=== PATIENT | male | born 1955 | race Caucasian/White ===

== ENCOUNTER → 2017-11-09 | Outpatient (CLI) | payer BC | END | disposition home or self-care (01) | LOC: ORTHO 00:39 | DX: M17.11 Unilateral primary osteoarthritis, right knee (principal) ==

== ENCOUNTER → 2018-10-23 | Outpatient (CLI) | payer BC ==
[~2018-10-23] MED LIST: ALLOPURINOL300 MG PO; AMLODIPINE BESYL5 MG PO; ASPIRIN CHEWABL81 MG PO; ECOTRIN325 M1 PO; ENOXAPARIN40 MG/0.2 SC; FLOMAX0.4 MG PO; GLUCOPHAGE1000 MG PO; HYDROCODONE-AC1 EAC1 PO; Humalog SQ; LANTUS SOL100 UNIT/1 SQ; NEXIUM40 M1 PO; PIOGLITAZONE HC45 MG PO; TOPROL XL25 MG PO; TYLENOL325 M2 PO; VICTOZA 2-0.6 MG/0.1 SQ; ZESTRIL20 MG PO
--- NOTE | ~2018-10-23 | EKG ---
[place], [place] ELECTROCARDIOGRAM REPORT NAME: MATEO CHAVEZ JR UNIT #: [id number] ROOM: DOCTOR: BRADLEY DRAFT REPORT BIRTHDATE: [birth year] [facility] Test Date: 2018-10-23 Test Time: 13:41:36 Pat Name: MATEO CHAVEZ Department: Room: Gender: [place] Encaser: Melody Lou : 1955 Requested By: NIRAV ALBRECHT Order Number: [id number] Reading MD: Reyes Olguin Measurements Intervals [place] Rate: 77 P: 22 WA: 184 QRS: 9 QRSD: 88 T: 38 QT: 368 QTc: 417 Interpretive Statements Sinus rhythm Low voltage, precordial leads Electronically Signed On 10-23-2018 12:03:17 PDT by Reyes Olguin CM:EKGRPT:ELECTROCARDIOGRAM REPORT [id number] NIRAV HUERTA DRAFT REPORT NIRAV ALBRECHT
[2018-10-23 13:36] LABS: BASO # 0.1 10*3/uL (0.0-0.1); BASO % 0.8 % (0.0-1.0); BILIRUBIN NEGATIVE (NEGATIVE); BLOOD NEGATIVE (NEGATIVE); CLARITY CLEAR (CLEAR); COLOR YELLOW (YELLOW); EOS # 0.2 10*3/uL (0.0-0.4); EOS % 3.2 % (1.0-4.0); GLUCOSE 3+ (NEGATIVE); HEMATOCRIT 42.6 % (42.0-52.0); HEMOGLOBIN 13.1 g/dl (14.0-18.0); KETONE NEGATIVE (NEGATIVE); LEUKO ESTERASE NEGATIVE (NEGATIVE); LYMPH # 1.7 10*3/uL (1.3-4.4); LYMPH % 23.7 % (27.0-41.0); MEAN CORPUSCULAR HGB 28.3 pg (27.0-31.0); MEAN CORPUSCULAR HGB CONC 30.8 g/dl (33.0-37.0); MEAN PLATELET VOLUME 9.3 fl (9.6-12.3); MONO # 0.5 10*3/uL (0.1-1.0); MONO % 7.4 % (3.0-9.0); NEUT # 4.6 10*3/uL (2.3-7.9); NEUT % 64.3 % (47.0-73.0); NITRITE NEGATIVE (NEGATIVE); PH 5.5 (5.0-9.0); PLATELET COUNT AUTOMATED 375 10*3/uL (130-400); RED BLOOD COUNT 4.63 10*6/uL (4.50-5.90); RED CELL DISTRI WIDTH 13.8 % (0-14.5); SPECIFIC GRAVITY 1.025 (1.005-1.030); UROBILINOGEN 0.2 E.U./dl (0.2-1.0); WHITE BLOOD COUNT 7.2 10*3/uL (4.8-10.8)
[2018-10-23 13:54] LABS: ALBUMIN 3.3 gm/dl (3.1-4.5); ALKALINE PHOSPHATASE 95 U/L (45-117); BUN 18 mg/dl (7-24); CHLORIDE 104 mmol/L (98-107); CHOLESTEROL 190 mg/dL (<200); CREATININE 1.37 mg/dL (0.70-1.30); HDL CHOLESTEROL 42 mg/dl (40-60); LDL CHOLESTEROL 89 mg/dL (9-159); PHOSPHOROUS 3.1 mg/dL (2.5-4.9); POTASSIUM 4.2 mmol/L (3.5-5.1); SGOT/AST 9 IU/L (3-35); SGPT/ALT 21 U/L (12-78); SODIUM 138 mmol/L (136-145); TOTAL PROTEIN 7.3 gm/dL (6.4-8.2); TRIGLYCERIDES 293 mg/dl (<150); VLDL CHOLESTEROL 59 mg/dL (6-40)
[2018-10-23 13:55] LABS: BILIRUBIN, DIRECT 0.1 mg/dL (0.0-0.2)
== END | disposition home or self-care (01) ==
LOC: LAB 13:12
PROVIDERS: Internal Medicine
DX: I25.10 Atherosclerotic heart disease of native coronary artery without angina pectoris (principal); I10 Essential (primary) hypertension; E11.9 Type 2 diabetes mellitus without complications; Z79.4 Long term (current) use of insulin

== ENCOUNTER → 2018-10-31 | Outpatient (CLI) | payer BC ==
[2018-10-31 15:07] LABS: BILIRUBIN NEGATIVE (NEGATIVE); BLOOD TRACE-INTACT (NEGATIVE); CLARITY CLEAR (CLEAR); COLOR YELLOW (YELLOW); GLUCOSE NEGATIVE (NEGATIVE); KETONE NEGATIVE (NEGATIVE); LEUKO ESTERASE NEGATIVE (NEGATIVE); NITRITE NEGATIVE (NEGATIVE); PH 5.5 (5.0-9.0); SPECIFIC GRAVITY 1.025 (1.005-1.030); UROBILINOGEN 0.2 E.U./dl (0.2-1.0)
[2018-10-31 15:25] LABS: EPITHELIAL CELLS 0-2
[2018-10-31 15:26] LABS: HYALINE CAST 0-2
== END | disposition home or self-care (01) ==
LOC: LAB 13:01
PROVIDERS: Orthopaedic Surgery
DX: Z01.811 Encounter for preprocedural respiratory examination (principal); M17.11 Unilateral primary osteoarthritis, right knee

== ENCOUNTER 2018-11-14 00:37 | Inpatient (IN) | payer BC ==
[~2018-11-14] VITALS: Ht 182.8 cm; Wt 129.3 kg
[2018-11-14] VITALS (11 sets, daily range): BP systolic 143–194; BP diastolic 67–95
[~2018-11-14 00:37] MED LIST changes: -ECOTRIN325 M1 PO; -ENOXAPARIN40 MG/0.2 SC; -HYDROCODONE-AC1 EAC1 PO; -Humalog SQ; -TYLENOL325 M2 PO
--- NOTE | 2018-11-14 13:48 | NUR ---
[facility] 63, admitted to , under the services of BRITNEY Moore DO with a diagnosis of RT KNEE REPLACEMENT. Chief complaint is PAIN. Patient arrived via bed from [place]. Monitor applied. Initial assessment completed. Vital signs taken and recorded. BRITNEY MOORE DO notified of admission to the unit. Orders received. See assessment for past medical history, medications and allergies. Patient and/or family oriented to unit. [facility]. Clothing/patient valuable form completed. FERMIN PEREZ
--- NOTE | 2018-11-14 13:50 | NUR ---
MORPHINE GIVEN FOR C/O RT KNEE PAIN. RATES 8/10 ON PAIN SCALE. WILL MONITOR.
--- NOTE | 2018-11-14 14:50 | NUR ---
MORPHINE NOT FULLY EFFECTIVE PER PT. WILL MONITOR.
--- NOTE | 2018-11-14 15:29 | NUR ---
NORCO GIVEN FOR C/O RT KNEE PAIN. RATES 8/10 ON PAON SCALE. WILL MONITOR.
--- NOTE | 2018-11-14 16:22 | NUR ---
Occupational Therapy evaluation completed on 4 with full eval to follow. Precautions include RLE WBAT s/p R TKA 11/14/[address] Matthews, fall risk,new ww use, CPM use, O2 use, IV UE, moderate complexity 55092 via chart review, testing, and evaluation. Recommend OT per pOC and SNF to enable safe return home. Patient educated on R TKA precautions, safety with wh walker and transfers to bed. Thank you. Nancy Kidd OTr/L
--- NOTE | 2018-11-14 17:02 | NUR ---
PHYSICAL THERAPY Nursing screen received and chart reviewed. Physical therapy evaluation complete, 4E. Full evaluation/details to follow. Moderate complexity evaluation per chart review and evaluation. PT to progress as tolerable with gait, transfers, balance, LE strengthening. Patient is WBAT on Right LE following Right TKA. Recommend SNF at discharge. Thank you. Lizzy Arriaga,PT,DPT.
--- NOTE | 2018-11-14 18:01 | NUR ---
MORPHINE GIVEN FOR C/O RT KNEE PAIN. RATES 8/10 ON PAIN SCALE. WILL MONITOR.
--- NOTE | 2018-11-14 19:29 | NUR ---
PRN ORDER FOR MYNOR RECIEVED FOR COMPLAINTS OF 10/10 PAIN TO RT LEG. WILL MONITOR FOR EFFECTIVENESS
--- NOTE | 2018-11-14 19:50 | NUR ---
DR. CANTRELL NOTIFIED OF PT'S COMPLAINTS OF DISTRESSING PAIN DESPITE BEING GIVEN MORPHINE AT 1800 AT [place] AT 1929. PT STATES THE MORPHINE ONLY TAKES HIS PAIN AWAY FOR A VERY BREIF AMOUNT OF TIME THEN THE PAIN COMES BACK. HE RATES HIS PAIN 10/10 AT THIS TIME. ORDERS TO INCREASE MORPHINE FROM 2MG TO 3MG Q4H PRN.
--- NOTE | 2018-11-14 21:00 | NUR ---
SURESHCO MINIMALLY EFFECTIVE PER PT.
--- NOTE | 2018-11-14 21:06 | NUR ---
3MG MORPHINE REQUESTED AND RECIEVED FOR COMPLAINTS OF 10/10 PAIN TO RT LEG. WILL MONITOR FOR EFFECTIVENESS.
--- NOTE | 2018-11-14 22:06 | NUR ---
MORPHINE MINIMALLY EFFECTIVE PER PT
--- NOTE | 2018-11-14 23:00 | NUR ---
PT REFUSING CPM MACHINE. HE STATES IT MAKES THE PAIN MUCH WORSE THAN IT ALREADY IS.
[2018-11-15] VITALS: BP 178/90
--- NOTE | 2018-11-15 00:16 | NUR ---
DR. CANTRELL NOTIFIED OF PT'S BP 178/90 MANUALLY. PT IS ASYMPTOMATIC. STATES HE IS IN PAIN. DR. CANTRELL STATES TO MONITOR THE BP, IT IS PROBABLY DUE TO THE PAIN. WILL CONTINUE TO MONITOR.
--- NOTE | 2018-11-15 00:27 | NUR ---
NORCO ADMINISTERED ORDERED FOR C/O 10 PAIN TO RT LEG. WILL MONITOR FOR EFFECTIVENESS.
--- NOTE | 2018-11-15 02:00 | NUR ---
NORCO NOT EFFECTIVE PER PT
--- NOTE | 2018-11-15 02:57 | NUR ---
PT REQUESTED AND RECIEVED MORPHINE FOR COMPLAINTS OF RT LEG PAIN HE RATES 10/10. WILL MONITOR FOR EFFECTIVENESS OF MEDICATION.
--- NOTE | 2018-11-15 04:30 | NUR ---
MORPHINE NOT EFFECTIVE PER PTY
--- NOTE | 2018-11-15 05:20 | NUR ---
DR. CANTRELL NOTIFIED THAT MORPHINE AND NORCO ARE NOT HELPING PT'S PAIN. HE STILL RATES HIS PAIN IS STILL 10/10. SHE STATES SHE WILL PUT IN ORDERS FOR DILAUDID 1MG Q4H
--- NOTE | 2018-11-15 05:28 | NUR ---
1MG IV DILAUDID GIVEN FOR C/O 10/10 PAIN TO RT LEG. WILL MONITOR FOR EFFECTIVENESS
[2018-11-15 06:37] LABS: BASO % 0.3 % (0.0-1.0); EOS % 0.2 % (1.0-4.0); HEMATOCRIT 38.4 % (42.0-52.0); HEMOGLOBIN 12.5 g/dl (14.0-18.0); LYMPH # 0.8 10*3/uL (1.3-4.4); LYMPH % 6.4 % (27.0-41.0); MEAN CELL VOLUME 88.5 fl (80.0-94.0); MEAN CORPUSCULAR HGB 28.8 pg (27.0-31.0); MEAN CORPUSCULAR HGB CONC 32.6 g/dl (33.0-37.0); MEAN PLATELET VOLUME 9.1 fl (9.6-12.3); MONO # 1.2 10*3/uL (0.1-1.0); MONO % 9.9 % (3.0-9.0); NEUT # 9.7 10*3/uL (2.3-7.9); NEUT % 82.6 % (47.0-73.0); PLATELET COUNT AUTOMATED 291 10*3/uL (130-400); RED BLOOD COUNT 4.34 10*6/uL (4.50-5.90); RED CELL DISTRI WIDTH 13.5 % (0-14.5); WHITE BLOOD COUNT 11.8 10*3/uL (4.8-10.8)
[2018-11-15 07:09] LABS: CHLORIDE 96 mmol/L (98-107); POTASSIUM 3.9 mmol/L (3.5-5.1); SODIUM 129 mmol/L (136-145)
[2018-11-15 07:26] LABS: ALBUMIN 3.2 gm/dl (3.1-4.5); ALKALINE PHOSPHATASE 77 U/L (45-117); BUN 8 mg/dl (7-24); CHOLESTEROL 161 mg/dL (<200); CREATININE 1.08 mg/dL (0.70-1.30); FREE T4 1.24 ng/dl (0.76-1.46); HDL CHOLESTEROL 56 mg/dl (40-60); LDL CHOLESTEROL 91 mg/dL (9-159); PHOSPHOROUS 3.1 mg/dL (2.5-4.9); SGOT/AST 9 IU/L (3-35); SGPT/ALT 14 U/L (12-78); TOTAL PROTEIN 7.1 gm/dL (6.4-8.2); TRIGLYCERIDES 69 mg/dl (<150); VLDL CHOLESTEROL 14 mg/dL (6-40)
--- NOTE | 2018-11-15 07:32 | NUR ---
DILAUDID SEEMS TO BE MORE EFFECTIVE THAN MORPHINE. PT RESTING IN BED AT THIS TIME. RESPIRATIONS EASY AND NONLABORED. CALL LIGHT WITHIN REACH. WILL CONTINUE TO MONITOR.
[2018-11-15 08:00] VITALS: BP 162/80
--- NOTE | 2018-11-15 08:15 | NUR ---
PT MEDICATED WITH PRN NORCO FOR C/O RIGHT KNEE PAIN. PT RATES PAIN 9/10 AFTER THE DILAUDID WORE OFF. WILL MONITOR.
--- NOTE | 2018-11-15 08:44 | NUR ---
In to see patient, at bedside. Discussed discharge planning. Patient agreeable to short term rehab. [facility]. Will contact facilities and fax referral.
[2018-11-15 08:48] LABS: VITAMIN D, 25-HYDROXY 38.2 ng/mL (30-100)
--- NOTE | 2018-11-15 08:52 | NUR ---
[facility] full and does not have any anticipated discharges until after the 21 of november. Faxed referral to [facility], requested private room on rehab wing. Waiting for review/acceptance. will require precert.
--- NOTE | 2018-11-15 09:00 | NUR ---
Instructor Industrial Design in to talk to patient. Patient states lives at home with . There are few steps in the home. Physician: michelle Pharmacy: Home health services: none Patient's level of ADLs: INDEPENDENT Patient has working utilities: all working DME: none Follow-up physician's appointment after d/c: will be made by hospitalist nurse director upon discharge Does patient want to access PORTAL?: no Discharge plan discussed with patient, present, patient and have discussed discharge plans with life care planner and have decided to go to [facility] for short term alf, case management will follow. JORGE MCCARTHY
--- NOTE | 2018-11-15 09:12 | NUR ---
PRN NORCO SOMEWHAT EFFECTIVE PER PT BUT REQUESTS PRN DILAUDID. PT RATES PAIN 11/11. PRN DIDLAUDID GIVEN.
--- NOTE | 2018-11-15 10:05 | NUR ---
PHYSICAL THERAPY Patient seen this am 1;1 for therapy visit and was supine in bed with his and family friend present upon therapist arrival. Patient voices 5/10 R knee pain and presents with R knee bree wrap. Patient tolerated supine PROM R knee flexion with v/c for relaxation breathing technique. Patient limited in R knee extension ROM and was very guarded. Patient instructed on safe use of overhead trapeze bar prior to transfering supine to sit EOB with Min A. Patient then able to transfer sit to stand with use of standing walker support, MIN A, ambulating 40'x 1, wh walker, CGA/MIN, demonstrating antalgic, "step to" gait pattern. Patient unsteady during 180 degree turn around and returned to bedside chair with mild fatigue. Patient remained in chair with call light, tray table and telephone. Will continue per POC as tolerated to improve safe, functional transfers / mobililty to return to PLOF. Total treatment time 16 minutes. Pavel Villa, REHABILITATION COUNSELOR
--- NOTE | 2018-11-15 10:15 | NUR ---
PRN DILAUDID EFFECTIVE PER PT.
--- NOTE | 2018-11-15 10:33 | NUR ---
Pt was seen for OT x 25 minutes beginning with demonstration/instructions for use of adaptive equipment to enhance ADL tasks. Provided pt with leg automobiles salesperson, sock aid, director of instructional technology, LHSH and shoe horn. Supine to sit at EOB with leg automobiles salesperson required Min A. With director of instructional technology, removed sock & donned sock with sock aid SBA. Used director of instructional technology to start pants over feet with CGA when pulling pants over hips. Sit to stand required Min A and fxl mobility in bedroom area required CGA. Call light within reach. Continue with POC. Suzy PARMAR/Jurgen
--- NOTE | 2018-11-15 11:57 | NUR ---
PRN NORCO GIVEN FOR C/O RIGHT KNEE PAIN. PT RATES PAIN 8/10.
[2018-11-15 12:00] VITALS: BP 156/80
--- NOTE | 2018-11-15 13:00 | NUR ---
PRN NORCO EFFECTIVE PER PT.
--- NOTE | 2018-11-15 13:12 | NUR ---
Patient accepted to [facility], precert started, waiting on auth.
--- NOTE | 2018-11-15 13:20 | NUR ---
PHYSICAL THERAPY Patient seen this pm 1:1 for therapy visit and was supine in bed upon therapist arrival. Patient voices 7/10 R knee pain and transfers supine to sit EOB Min A with use of leg lift for assist and overhead trapeze bar. Patient demonstrated good understanding and performance of transfer with less difficulty from earlier session. Patient performs sit to stand, MIN A and ambulated 15'x 1 to bathroom, wh walker, CGA, then additional 40'x 1 returning to EOB sit. Patient transfered back to supine Min A and remained with call light, tray table, and telephone. Will continue per POC as tolerated, total treatment time 15 minutes. Pavel Villa, KINESIOTHERAPIST
--- NOTE | 2018-11-15 13:40 | NUR ---
OT NOTE Pt was seen this P.M. 1:1 for second OT session consisting of 18 minutes. Upon arrival pt was supine in bed. Pt identified by name and and had complaints of 7/10 R knee pain. Pt transferred supine to sit EOB with Melchor and use of leg lift for increased I in bed mobility. Sit to stand then completed from bed level with Melchor and use of w/w for UE support. Functional mobility completed into the bathroom with CGA and use of w/w. There he transferred on to standard commode with CGA and use of grab bar and off with Melchor due to low surface. Clothing management completed with CGA for safety and toilet hygiene completed with distant supervision while seated. Pt then stood sink side while washing his hands with CGA, pt had one LOB to the R that required Melchor to correct. Functional mobility completed back to the EOB where he transferred sit to supine with Melchor and use of leg lift for RLE support and assist. Pt was left supine in bed with call light in hand, tray table in place, and at bedside. Continue with rec D/C plan to SNF. YENI Aguilar/Jurgen
--- NOTE | 2018-11-15 14:04 | NUR ---
PRN DILAUDID GIVEN FOR C/O RIGHT KNEE PAIN BEFORE DOING CPM MACHINE, PT RATES PAIN 8/10.
--- NOTE | 2018-11-15 15:00 | NUR ---
PRN DILAUDID APPEARS EFFECTIVE. PT RESTING WITH EYES CLOSED.
--- NOTE | 2018-11-15 15:34 | NUR ---
PT TOLERATED CPM MACHINE FOR 45 MINUTES THEN CALLED OUT FOR IT TO BE TAKEN OFF.
[2018-11-15 16:00] VITALS: BP 169/71
--- NOTE | 2018-11-15 16:29 | NUR ---
PHYSICAL THERAPY CO-SIGN I approve of the Physical Therapy notes written above. NAS BARKER PT,DPT
--- NOTE | 2018-11-15 17:31 | NUR ---
PT MEDICATED WITH PRN NORCO FOR C/O RIGHT KNEE PAIN AFTER NAP. PT RATES PAIN 10/11. WILL MONITOR.
--- NOTE | 2018-11-15 18:30 | NUR ---
PT ENCOURAGED TO KEEP KNEE STRAIGHT RATHER THEN BEND AND TURN OUTWARD.
--- NOTE | 2018-11-15 18:33 | NUR ---
NO FURTHER REQUESTS FOR PAIN MEDICATION AT THIS TIME.
[2018-11-15 20:00] VITALS: BP 167/89
--- NOTE | 2018-11-15 20:02 | NUR ---
PT MEDICATED W/DILAUDID FOR C/O RIGHT KNEE PAIN 08/11.
[2018-11-16] VITALS: BP 153/90
[2018-11-16 07:24] LABS: BASO % 0.2 % (0.0-1.0); BUN 13 mg/dl (7-24); CHLORIDE 94 mmol/L (98-107); CREATININE 1.26 mg/dL (0.70-1.30); EOS % 0.2 % (1.0-4.0); HEMOGLOBIN 11.6 g/dl (14.0-18.0); LYMPH # 0.7 10*3/uL (1.3-4.4); LYMPH % 6.3 % (27.0-41.0); MEAN CORPUSCULAR HGB CONC 32.2 g/dl (33.0-37.0); MEAN PLATELET VOLUME 9.7 fl (9.6-12.3); MONO # 1.1 10*3/uL (0.1-1.0); MONO % 9.9 % (3.0-9.0); NEUT # 9.6 10*3/uL (2.3-7.9); NEUT % 82.8 % (47.0-73.0); PLATELET COUNT AUTOMATED 308 10*3/uL (130-400); RED CELL DISTRI WIDTH 13.7 % (0-14.5); SODIUM 129 mmol/L (136-145); WHITE BLOOD COUNT 11.6 10*3/uL (4.8-10.8)
[2018-11-16 07:47] VITALS: BP 158/86
--- NOTE | 2018-11-16 09:00 | NUR ---
case management visits with patient, [facility] prior to returning home, patient will need an insurance precert prior to admitting to the SNF, brand planner and case management will follow
--- NOTE | 2018-11-16 09:10 | NUR ---
PT AWAKE. ASSESSMENT COMPLETE. PTS IV WAS PULLED OUT SO I PLACED A NEW ONE. PT C/O NAUSEA AND PAIN. ADMINISTERED IV ZOFRAN AND DILAUDID PER ORDER. WILL MONITOR FOR EFFECTIVENESS. PER ORDERS PTS BARBOUR CATHETER REMOVED.
--- NOTE | 2018-11-16 10:14 | NUR ---
Pt was seen in OT x 23 minutes beginning with supine to sit at EOB without difficulty. SBA to use branch account manager to start pants over feet but able to pull pants over hips. UB dsg with set up. Sit to stand from bed was CGA. Fxl mobility throughout room was close supervision for safety. Call light within reach. Continue with OT POC. Suzy PARMAR/Jurgen
--- NOTE | 2018-11-16 10:39 | NUR ---
PHYSICAL THERAPY Patient presented to therapy in standing with Walker on his way out of the bathroom by himself. Patient reports 1/10 pain in R Knee. Patient performed ambulation with Walker and CGA X 1 for 60' x 2 and one LOB to R side while turning, requiring MIN A X 1 to correct. Patient sit to stand from low bedside chair with MIN A X 1 with verbal cues for pushing off armrests of chair with hands. Patient stood at Walker for a total of 4 minutes with Close Supervision. Patient was left in bedside chair with call light within reach and LEs in low position. No chair alarm present. Patient was 1:1 with this FREIGHT FLOW SALES LEADER for 17 minutes total. RHONDA MALCOLM FREIGHT FLOW SALES LEADER
--- NOTE | 2018-11-16 10:42 | NUR ---
Patient updated clinicals faxed to [facility] for precert. Still waiting for auth
[2018-11-16 12:00] VITALS: BP 124/73
--- NOTE | 2018-11-16 13:47 | NUR ---
OT NOTE Pt was seen this P.M. 1:1 for second OT session consisting of 20 minutes. Upon arrival pt was supine in bed. Pt identified by name and and had complaints of 1/10 R knee pain. Pt transferred supine to sit EOB with modA and use of leg lift for RLE management. Sit to stand completed from bed level with CGA and one verbal prompt for proper hand placement for increased I. Functional mobility was then completed into the bathroom where pt completed a shower transfer for increased I and enhanced safety in ADL's and functional transfers. Pt completed with CGA and two verbal prompts for safety awareness. Pt then transferred off shower chair with Melchor due to lower surface. Functional mobility then completed around the room with SBA and use of w/w for UE support. Pt required several standing rest breaks throughout due to quick onset of fatigue. Pt then transferred back into bed sit to supine with SBA and use of leg lift. Pt was left supine in bed with call light in hand, tray table in place, and phone in reach. Continue with rec D/C plan to SNF. YENI Aguilar/Jurgen
--- NOTE | 2018-11-16 14:06 | NUR ---
PHYSICAL THERAPY Patient presented to therapy in supine with head of bed elevated and daughter visitng with patient in room. Patient was identified by name and . Patient had report of 1/10 in the R knee. Patient transferred supine to sitting at EOB with MIN A X 1 for assisting with moving R LE out over EOB. Patient sit to stand with MIN A X 1 and verbal cues for hand placement. Patient ambulated with Wh Walker and Close Supervision for 60' x 2 and 40' x 1 with no LOB and verbal cues required for heel down, loading phase and heel off phase of gait. Patient transferred back to supine in bed with SBA with use of trapeze and stirrup device. Patient performed supine RIGHT LE ther ex x 15 reps to the R LE including SLRs, heel/toe pumps, heel slides, and hip abduction for strengthening the R LE in order to improve patient's functional mobility. Patient was left in supine with head of bed elevated, call light within reach, and bed alarm activated. Patient was 1:1 with this LENS INSPECTOR for 25 minutes total. RHONDA MALCOLM LENS INSPECTOR
--- NOTE | 2018-11-16 14:40 | NUR ---
I EXPLAINED TO PT THAT I NEED TO PLACE HIM ON THE CPM MACHINE. ADMINISTERED IV DILAUDID PER PT REQUEST PRIOR TO APPLICATION OF CPM. WILL MONITOR FOR EFFECTIVENESS.
--- NOTE | 2018-11-16 15:03 | NUR ---
PT PLACED ON CPM MACHINE AT 50 DEGREES. REMINDED PT TO CALL IF HE CAN NOT TOLERATE OTHERWISE I WILL MONITOR AND REMOVE IN 2 HRS. CALL PATEL IN REACH
[2018-11-16 16:00] VITALS: BP 119/60
[2018-11-16 20:00] VITALS: BP 148/74
--- NOTE | 2018-11-16 22:05 | NUR ---
PT MEDICATED W/DILAUDID IVP FOR C/O RT KNEE PAIN 07/12. DRSG TO RT KNEE DRY AND INTACT.
[2018-11-17] VITALS: BP 126/71
--- NOTE | 2018-11-17 02:03 | NUR ---
11/16/18 2355 PT PLACED ON HOME CPAP AT THIS TIME. RESPS REGULAR AND UNLABORED.
--- NOTE | 2018-11-17 02:51 | NUR ---
24 HR chart check completed.
[2018-11-17 06:59] LABS: BUN 20 mg/dl (7-24); CHLORIDE 97 mmol/L (98-107); CREATININE 1.44 mg/dL (0.70-1.30); POTASSIUM 3.8 mmol/L (3.5-5.1); SODIUM 132 mmol/L (136-145)
[2018-11-17 07:10] LABS: BASO % 0.3 % (0.0-1.0); EOS # 0.1 10*3/uL (0.0-0.4); EOS % 0.8 % (1.0-4.0); HEMATOCRIT 33.8 % (42.0-52.0); HEMOGLOBIN 10.8 g/dl (14.0-18.0); LYMPH # 0.9 10*3/uL (1.3-4.4); LYMPH % 10.3 % (27.0-41.0); MEAN CELL VOLUME 90.9 fl (80.0-94.0); MEAN PLATELET VOLUME 9.6 fl (9.6-12.3); MONO # 0.9 10*3/uL (0.1-1.0); NEUT % 77.9 % (47.0-73.0); PLATELET COUNT AUTOMATED 279 10*3/uL (130-400); RED BLOOD COUNT 3.72 10*6/uL (4.50-5.90); RED CELL DISTRI WIDTH 13.9 % (0-14.5)
[2018-11-17 08:00] VITALS: BP 138/75
--- NOTE | 2018-11-17 09:00 | NUR ---
case management visits with patient,he will be going to [facility] for short term snf for rehab prior to returning home, sr. merchandise planner will help with transportation arrangements
--- NOTE | 2018-11-17 09:45 | NUR ---
PHYSICAL THERAPY Patient seen this am 1;1 for therapy visit and was supine in bed upon therapist arrival. Patient voices 3/10 R knee pain and transfers supine to sit EOB with MIN A while using overhead trapeze bar / leg oem sales manager. Patient instructed and performed seated quad / glute sets, R LE heel slide with c/o of increased tightness. Patient then completes sit to stand CGA, ambulating with wh walker, CGA, 50'x 2, demonstrating "step to" suzy and POOR heel strike / R knee extension. Patient still unsteady at times during 90/180 turns and returned to supine in bed following all treatment. Patient remained in bed with call light, tray table and cell phone. Will continue per POC as tolerated, total treatment time 18 minutes. Pavel Villa, AUTO PARTS DELIVERY DRIVER
--- NOTE | 2018-11-17 09:54 | NUR ---
OT NOTE Pt was seen this A.M. 1:1 for 24 minute OT session. Upon arrival pt was supine in bed. Pt identified by name and and had complaints of 2-3/10 R knee pain. Pt transferred supine to sit EOB with SBA and use of leg lift for RLE management. While sitting EOB pt doffed and donned R sock with Melchor for instructions/sequencing with LB adaptive equipment including wire charger and sock aid. Pt then simulated LB bathing with SBA and use of long handle sponge. Sit to stand completed from bed level with CGA for safety and use of w/w for UE support. Functional mobility completed into the bathroom with SBA and use of w/w.Throughout pt required verbal prompts for step sequence and putting his heel on the ground due to walking on his tip toe on his RLE. Pt transferred on/off standard commode with CGA and use of grab bar for UE support. Clothing management completed with SBA and toilet hygiene completed CT while seated. Pt then stood sink side while washing his hands with SBA. Functional mobility completed back to the EOB where he transferred sit to supine with SBA and use of leg lift. There he was left with call light in hand, tray table in place, and phone in reach. Continue with rec D/C plan to SNF. YENI Aguilar/Jurgen
--- NOTE | 2018-11-17 11:19 | NUR ---
Precert started at [facility], still waiting for auth.
[2018-11-17 12:00] VITALS: BP 132/75
--- NOTE | 2018-11-17 12:45 | NUR ---
PHYSICAL THERAPY Patient seen this pm 1;1 for therapy visit and was resting supine in bed following lunch. Patient voices 7/10 R knee pain and had just requested pain MED. Patient transfers supine to stand Min A and ambulates with use of wh walker, 50' x 2, then 20'x 1, demonstrating uneven stride, decreased heel strike and antalgic gait pattern. Patient instructed on standing Gastroc stretch to promote improved stride, including standing knee flexion "butt kicks" R LE. Patient returned to EOB sit as Dr. Matthews arrived to visit. Will continue per POC as tolerated, total treatment time 17 minutes. Pavel Villa, ELEVATOR SERVICE MECHANIC
--- NOTE | 2018-11-17 12:50 | NUR ---
OT NOTE Pt was seen this P.M. 1:1 for second OT session consisting of 12 minutes. Upon arrival pt was supine in bed. Pt identified by name and and had complaints of 4/10 R knee pain. Pt transferred supine to sit EOB with SBA and use of leg lift for RLE management. Sit to stand completed from bed level with CGA and use of w/w for UE support. Pt completed functional mobility around the room with SBA and use of w/w. Throughout pt maintained good walker safety. Challenged pt's dynamic standing tolerance needed for increased I and enhanced safety in self care tasks and pt was able to tolerate aprox 2 minutees at a time before sitting due to fatigue. Pt transferred back into bed sit to supine with supervision and use of leg lift. Continue with rec D/C plan to SNF. YENI Aguilar/Jurgen
[2018-11-17] MEDS ORDERED: Humalog SQ (13:51)
[2018-11-17] MEDS ORDERED: TYLENOL325 M2 PO (13:51)
[2018-11-17] MEDS ORDERED: ENOXAPARIN40 MG/0.2 SC ×2 (13:51→14:00)
[2018-11-17] MEDS ORDERED: HYDROCODONE-AC1 EAC1 PO (13:51)
[2018-11-17] MEDS ORDERED: ECOTRIN325 M1 PO (13:51)
--- NOTE | 2018-11-17 14:15 | NUR ---
Patient has received auth for [facility]. Patient is ok to go if medically stable for discharge.
--- NOTE | 2018-11-17 14:29 | NUR ---
Patient is discharged to [facility]. Transportation scheduled for 4PM with [facility]. NH, nursing/wardrobe stylist and patient all notified. Patient will notify his family.
--- NOTE | 2018-11-17 14:54 | NUR ---
OCCUPATIONAL THERAPY CO-SIGN I approve of the Occupational Therapy notes written above. Hallie Wall, OTR/L
--- NOTE | 2018-11-17 15:30 | NUR ---
PT DISCHARGED TO [facility] VIA [facility]. [place] REMOVED. F/U CARE DISCUSSED.
--- NOTE | 2018-11-20 09:27 | NUR ---
PHYSICAL THERAPY CO-SIGN I approve of the Physical Therapy notes written above. NAS BARKER PT,DPT
== END 2018-11-17 15:30 | disposition other institution (70) | DRG 470 ==
LOC: SDC 00:37 → 4E 07:24 → SDC 07:30 → 4E 09:10 → SDC 13:15 → 4E 11-17 15:30
PROVIDERS: Internal Medicine; Registered Nurse; ADMIT Internal Medicine
PROC: 0SRC0J9 Replacement of Right Knee Joint with Synthetic Substitute, Cemented, Open Approach (ICD-10-PCS; principal; 2018-11-14)
DX: M17.11 Unilateral primary osteoarthritis, right knee (principal); E87.1 Hypo-osmolality and hyponatremia; E66.9 Obesity, unspecified; K21.9 Gastro-esophageal reflux disease without esophagitis; E11.65 Type 2 diabetes mellitus with hyperglycemia; I10 Essential (primary) hypertension; I25.10 Atherosclerotic heart disease of native coronary artery without angina pectoris; Z79.4 Long term (current) use of insulin; Z95.5 Presence of coronary angioplasty implant and graft; Z79.899 Other long term (current) drug therapy; Z87.442 Personal history of urinary calculi; Z83.3 Family history of diabetes mellitus; Z82.49 Family history of ischemic heart disease and other diseases of the circulatory system; Z80.8 Family history of malignant neoplasm of other organs or systems; Z68.38 Body mass index [BMI] 38.0-38.9, adult

== ENCOUNTER → 2018-12-27 | Outpatient (CLI) | payer BC ==
[~2018-12-27] MED LIST changes: +ECOTRIN325 M1 PO; +ENOXAPARIN40 MG/0.2 SC; +HYDROCODONE-AC1 EAC1 PO; +Humalog SQ; +TYLENOL325 M2 PO
== END | disposition home or self-care (01) ==
LOC: ORTHO 00:07
DX: Z96.651 Presence of right artificial knee joint (principal)

== ENCOUNTER → 2019-01-17 | Outpatient (CLI) | payer BC | END | disposition home or self-care (01) | LOC: ORTHO 01:38 | DX: Z96.651 Presence of right artificial knee joint (principal) ==

== ENCOUNTER → 2019-04-06 | Outpatient (CLI) | payer BC | END | disposition home or self-care (01) | LOC: ORTHO 00:42 | DX: Z96.651 Presence of right artificial knee joint (principal) ==

== ENCOUNTER → 2020-04-05 | Outpatient (CLI) | payer BC | END | disposition home or self-care (01) | LOC: COVID19 13:23 | PROVIDERS: ATTEND Internal Medicine | DX: U07.1 COVID-19 (principal) ==

== ENCOUNTER → 2020-04-21 | Outpatient (CLI) | payer BC ==
[2020-04-21 17:23] LABS: BODY FLUID WBC 979 /uL
[2020-04-22 09:07] LABS: ACID FAST SPEC PROCESSING Direct Inoculation (.)
[2020-04-22 10:14] LABS: BF MACROPHAGES 64 %
[2020-04-22 10:17] LABS: BF LYMPHOCYTES 27 %; BF NEUTROPHILS 6 %
[2020-04-28 14:08] LABS: ORGANISM ID Final report (.)
[2020-06-06 11:07] LABS: ACID FAST CULTURE Negative (.)
== END | disposition home or self-care (01) ==
LOC: LAB 16:07
PROVIDERS: ATTEND Orthopaedic Surgery
DX: M25.461 Effusion, right knee (principal)

== ENCOUNTER → 2020-09-30 | Outpatient (CLI) | payer BC ==
[2020-09-30 08:58] LABS: BASO # 0.1 10*3/uL (0.0-0.1); EOS # 0.4 10*3/uL (0.0-0.4); HEMATOCRIT 41.8 % (42.0-52.0); LYMPH # 2.5 10*3/uL (1.3-4.4); LYMPH % 35.9 % (27.0-41.0); MEAN CELL VOLUME 85.5 fl (80.0-94.0); MEAN CORPUSCULAR HGB 26.8 pg (27.0-31.0); MEAN CORPUSCULAR HGB CONC 31.3 g/dl (33.0-37.0); MONO # 0.6 10*3/uL (0.1-1.0); MONO % 8.6 % (3.0-9.0); NEUT # 3.3 10*3/uL (2.3-7.9); NEUT % 48.1 % (47.0-73.0); PLATELET COUNT AUTOMATED 447 10*3/uL (130-400); RED BLOOD COUNT 4.89 10*6/uL (4.50-5.90); RED CELL DISTRI WIDTH 13.8 % (0-14.5); WHITE BLOOD COUNT 6.9 10*3/uL (4.8-10.8)
== END | disposition home or self-care (01) ==
LOC: LAB 08:19
PROVIDERS: ATTEND Orthopaedic Surgery
DX: Z47.33 Aftercare following explantation of knee joint prosthesis (principal)